=== PATIENT | male | born 1970 | race Caucasian/White ===

== ENCOUNTER 2016-11-29 11:26 | Emergency (ER) | payer BC ==
[~2016-11-29] VITALS: Ht 185.4 cm; Wt 102.2 kg
[~2016-11-29 11:26] MED LIST: ALBUTEROL SULF8.5 GM IH; BENTYL10 MG PO; CIPRO500 MG PO; FLOMAX0.4 MG PO; GLUCOPHAGE500 MG PO; GLUCOTROL10 MG PO; LEVAQUIN750 MG PO; LIPITOR10 MG PO; LORCET 5-325 M1 EACH PO; PERCOCET 5/31 TABLET PO; TORADOL10 MG PO; ZOFRAN4 MG PO
[2016-11-29] MEDS ORDERED: NAPROSYN500 MG PO (11:57)
[2016-11-29] MEDS ORDERED: FLEXERIL10 MG PO (11:57)
[2016-11-29 12:29] VITALS: BP 129/85
== END 2016-11-29 12:30 | disposition home or self-care (01) ==
LOC: EME 11:26
DX: M62.830 Muscle spasm of back (principal); E11.9 Type 2 diabetes mellitus without complications; Z79.84 Long term (current) use of oral hypoglycemic drugs
CPT/HCPCS: 99281; 99284; J1885

== ENCOUNTER 2017-11-02 06:09 | Emergency (ER) | payer BC ==
[~2017-11-02] VITALS: Ht 182.9 cm; Wt 110.0 kg
[~2017-11-02 06:09] MED LIST changes: +FLEXERIL10 MG PO; +NAPROSYN500 MG PO
[2017-11-02 06:58] LABS: HEMATOCRIT 43.7 % (38.0-50.0); HEMOGLOBIN 15.4 G/DL (12.5-16.6); MCH 30.6 PG (29.0-34.0); MCHC 35.2 G/DL (30.0-36.0); MCV 86.9 FL (86-99); PLATELET COUNT 165 K/uL (156-360); RBC DIS.WIDTH-CV 12.2 % (11.8-14.6); RBC DIS.WIDTH-SD 38.5 % (39-53); RED BLOOD COUNT 5.03 M/uL (4.00-5.50); WHITE BLOOD COUNT 5.4 K/uL (4.1-10.2)
[2017-11-02 07:38] LABS: CHLORIDE 97 MEQ/L (99-109); DIRECT BILIRUBIN 0.3 mg/dL (0.0-0.3); POTASSIUM 3.9 MEQ/L (3.7-5.4); SODIUM 131 MEQ/L (136-147); TOTAL BILIRUBIN 1.9 MG/DL (0.0-1.0)
[2017-11-02 07:55] LABS: ALKALINE PHOSPHATASE 95 IU/L (3-129); ALT (GPT) 47 IU/L (3-49); AST (GOT) 25 IU/L (2-34); GFR ESTIMATE (CALCULATED) > 59 mL/min/ (58.99-99999); LIPASE 15 U/L (1.0-51.0); TOTAL PROTEIN 6.5 G/DL (6.4-8.3); UREA NITROGEN (BUN) 10 mg/dL (9-23)
[2017-11-02 07:57] LABS: GLUCOSE 410 mg/dL (70-99)
[2017-11-02] MEDS ORDERED: ZOFRAN ODT4 MG PO (08:55)
[2017-11-02 10:42] VITALS: BP 150/89
[2017-11-03] MEDS ORDERED: TAMIFLU75 MG PO (02:52)
== END 2017-11-03 03:13 | disposition home or self-care (01) ==
LOC: EME 06:09
PROVIDERS: Physician Assistant
DX: R11.10 Vomiting, unspecified (principal); E11.65 Type 2 diabetes mellitus with hyperglycemia; F32.9 Major depressive disorder, single episode, unspecified; Z87.442 Personal history of urinary calculi; Z79.84 Long term (current) use of oral hypoglycemic drugs
CPT/HCPCS: 74018; 80048; 80076; 82948; 83690; 85027; 99281; 99285; J2405; J7030; S0028

== ENCOUNTER 2017-11-02 21:49 | Emergency (ER) | payer BC ==
[~2017-11-02] VITALS: Ht 182.9 cm; Wt 109.6 kg
[~2017-11-02 21:49] MED LIST changes: +ZOFRAN ODT4 MG PO
[2017-11-03 02:19] LABS: BASOPHIL (%) 0.2 % (0-1); EOSINOPHIL (%) 0.8 % (0-5); HEMATOCRIT 43.1 % (38.0-50.0); IMMATURE GRANULOCYTE (%) 0.4 % (0.0-0.7); LYMPHOCYTE (%) 17.7 % (15-42); LYMPHOCYTE COUNT 0.9 K/uL (1.0-2.8); MCH 30.5 PG (29.0-34.0); MCHC 34.8 G/DL (30.0-36.0); MCV 87.8 FL (86-99); MONOCYTE (%) 14.5 % (3-12); MONOCYTE COUNT 0.7 K/uL (0-0.8); NEUTROPHIL (%) 66.4 % (45-76); NEUTROPHIL COUNT 3.3 K/uL (1.8-6.4); PLATELET COUNT 153 K/uL (156-360); RBC DIS.WIDTH-CV 12.3 % (11.8-14.6); RBC DIS.WIDTH-SD 39.5 % (39-53); RED BLOOD COUNT 4.91 M/uL (4.00-5.50); WHITE BLOOD COUNT 4.9 K/uL (4.1-10.2)
[2017-11-03 02:30] LABS: CHLORIDE 103 mEq/L (99-109); SODIUM 134 mEq/L (136-147)
[2017-11-03 02:32] LABS: GLUCOSE 279 mg/dL (70-99); TOTAL PROTEIN 6.7 g/dL (6.4-8.3)
[2017-11-03 02:35] LABS: ALKALINE PHOSPHATASE 104 IU/L (3-129)
[2017-11-03 02:36] LABS: CREATININE 1.1 mg/dL (0.6-1.3); GFR ESTIMATE (CALCULATED) > 59 mL/min/ (58.99-99999)
[2017-11-03 02:37] LABS: AST (GOT) 35 IU/L (2-34); UREA NITROGEN (BUN) 10 mg/dL (9-23)
[2017-11-03 02:39] LABS: ALT (GPT) 55 IU/L (3-49); LIPASE 10 U/L (1.0-51.0)
[2017-11-03] MEDS ORDERED: TAMIFLU75 MG PO (02:52)
[2017-11-03 03:13] VITALS: BP 128/79
== END 2017-11-03 03:14 | disposition home or self-care (01) ==
LOC: EME 21:49
PROVIDERS: Emergency Medicine
DX: J10.1 Influenza due to other identified influenza virus with other respiratory manifestations (principal); R73.9 Hyperglycemia, unspecified
CPT/HCPCS: 71046; 80053; 81003; 82010; 82800; 83605; 83690; 85025; 87502; 99281; 99284; J7030

== ENCOUNTER 2017-12-28 09:19 | Emergency (ER) | payer OTHER, BC ==
[~2017-12-28] VITALS: Ht 182.9 cm; Wt 104.5 kg
[~2017-12-28 09:19] MED LIST changes: +TAMIFLU75 MG PO
[2017-12-28] MEDS ORDERED: NAPROSYN500 MG PO (10:50)
[2017-12-28] MEDS ORDERED: FLEXERIL10 MG PO (10:50)
[2017-12-28 11:36] VITALS: BP 137/99
== END 2017-12-28 11:37 | disposition home or self-care (01) ==
LOC: EME 09:19
DX: M62.838 Other muscle spasm (principal); S06.0X0A Concussion without loss of consciousness, initial encounter; V89.9XXA Person injured in unspecified vehicle accident, initial encounter; Y92.410 Unspecified street and highway as the place of occurrence of the external cause
CPT/HCPCS: 72070; 72100; 99281; 99283